=== PATIENT | male | born 1945 | race Caucasian/White ===

== ENCOUNTER 2019-03-30 14:34 | Outpatient (CLI) | payer OTHER, SELFPAY ==
--- NOTE | 2019-03-30 14:40 | CT_ITS ---
WS: [id number] CT CHEST TECHNIQUE: Contrast enhanced CT of the chest with coronal and sagittal reformatted images. CLINICAL INFORMATION: PULMONARY NODULE COMPARISON: CT abdomen pelvis October 06, 2018 DLP: 698.[address] scans at [facility] use at least one of these dose optimization techniques: automat ed exposure control; mA and/or kV adjustment per patient size (includes targeted exams where dose is matched to clinical indication); or iterative reconstruction. FINDINGS: Again seen is a 6 mm noncalcified nodule right lower lobe which appears unchanged. Additional small s ubpleural opacity in the right lower lobe near the diaphragm measuring 4.3 mm appears new from previo us. Mild chronic emphysematous changes. Fibrotic appearing opacity within the right middle lobe likel y fibrosis or subsegmental atelectasis. This was present previously. No acute pulmonary infiltrates. No consolidation or pleural fluid. No mediastinal or hilar lymphadeno david. Normal endobronchial tree. Tortuous thoracic aorta. Moderate eccentric atheromatous disease in the lower thoracic and upper abdominal aorta. Proximal celiac and SMA appear patent. Mild thoracic c urve. Moderate thoracic kyphosis. Hypertrophic changes thoracic spine. Coronary calcification. Adrena l glands are normal. Prominent gallbladder calculus measuring [address]/CT chest w con* [id number] IMPRESSION: 1. Previously described 6 mm noncalcified nodule in the right lower lobe media lly is unchanged from previous. 2. New small subpleural opacity in the right lower lobe near the diaphragm shanell suring 4.3 mm. Recommend 6-12 month follow-up. 3. Fibrosis or subsegmental atelectasis in the right middle lobe was present p reviously. 4. Mild chronic emphysematous changes. No acute pulmonary infiltrates. 5. No mediastinal or hilar lymphadenopathy. 6. Moderate atheromatous disease involving the descending thoracic aorta near the diaphragm and upper abdominal aorta unchanged in appearance. 7. 15 mm calculus in the gallbladder is unchanged.
[2019-03-30 15:19] LABS: Anion Gap 19.3 (5-19); Blood Urea Nitrogen 15 mg/dL (8-23); Calcium 9.2 mg/dL (8.5-10.5); Carbon Dioxide 23 mmol/L (22-29); Chloride 99 mmol/L (98-107); Glucose 116 mg/dL (65-115); Osmolality Calculated 281 mOsm/kg (285-295); Potassium 4.3 mmol/L (3.5-5.1); Sodium 137 mmol/L (136-145)
[2019-03-30] MEDS: iodixanol 320 mg/mL 100mL Btl IV (15:39)
== END 2019-03-30 14:35 | disposition home or self-care (01) ==
LOC: CT 14:37
PROVIDERS: Family Provider Emergency Medicine Emergency Medical Services; PCP Emergency Medicine Emergency Medical Services; Visit Provider Emergency Medicine Emergency Medical Services
DX: R91.1 Solitary pulmonary nodule (principal); K80.20 Calculus of gallbladder without cholecystitis without obstruction
CPT/HCPCS: 36415; 71260; 80048

== ENCOUNTER → 2019-06-30 14:13 | Outpatient (BNVA) | payer OTHER, SELFPAY | PROVIDERS: Family Provider Emergency Medicine Emergency Medical Services; PCP Emergency Medicine Emergency Medical Services; Visit Provider Urology | DX: N40.1 Benign prostatic hyperplasia with lower urinary tract symptoms (principal); R35.1 Nocturia; R35.8 Other polyuria | CPT/HCPCS: 81001 ==

== ENCOUNTER → 2019-12-28 14:39 | Outpatient (BNVA) | payer OTHER, SELFPAY | PROVIDERS: Family Provider Emergency Medicine Emergency Medical Services; PCP Emergency Medicine Emergency Medical Services; Visit Provider Urology | DX: N40.1 Benign prostatic hyperplasia with lower urinary tract symptoms (principal); R35.8 Other polyuria; R35.1 Nocturia | CPT/HCPCS: 81003 ==

== ENCOUNTER → 2020-04-13 12:59 | Outpatient (BNVA) | payer OTHER, SELFPAY | PROVIDERS: Family Provider Emergency Medicine Emergency Medical Services; PCP Emergency Medicine Emergency Medical Services; Visit Provider Surgery | DX: Z01.812 Encounter for preprocedural laboratory examination (principal); D64.9 Anemia, unspecified; Z12.11 Encounter for screening for malignant neoplasm of colon | CPT/HCPCS: 87635 ==

== ENCOUNTER → 2020-05-05 14:09 | Outpatient (BNVA) | payer OTHER, SELFPAY | PROVIDERS: Family Provider Emergency Medicine Emergency Medical Services; PCP Emergency Medicine Emergency Medical Services; Visit Provider Surgery | DX: Z01.812 Encounter for preprocedural laboratory examination (principal); Z20.822 Contact with and (suspected) exposure to COVID-19 | CPT/HCPCS: 87635 ==

== ENCOUNTER → 2020-05-25 14:42 | Outpatient (BNVA) | payer OTHER, SELFPAY | PROVIDERS: Family Provider Emergency Medicine Emergency Medical Services; PCP Emergency Medicine Emergency Medical Services; Referring Provider Emergency Medicine Emergency Medical Services; Visit Provider Orthopaedic Surgery | DX: M47.896 Other spondylosis, lumbar region (principal); M54.5 Low back pain; M54.9 Dorsalgia, unspecified; G89.29 Other chronic pain | CPT/HCPCS: 72110 ==

== ENCOUNTER 2020-06-15 16:47 | Emergency (ER) | payer OTHER, SELFPAY ==
[2020-06-15 17:03] VITALS: BP 107/77; PULSE 144; RESP 18; TEMP 36.8; O2SAT 130; BMI 20.9
--- NOTE | 2020-06-15 17:21 | ECG_ITS ---
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 Measurements Intervals [place] Rate: 125 P: 74 NC: 155 QRS: 53 QRSD: 81 T: 77 QT: 308 QTc: 445 Interpretive Statements SINUS TACHYCARDIA INDETERMINATE AXIS POSSIBLE RIGHT VENTRICULAR CONDUCTION DELAY [RSR (QR) IN V1/V2] MINIMAL ST DEPRESSION [0.025+ mV ST DEPRESSION] No previous ECG available for comparison Electronically Signed On 06-16-2020 7:27:47 CDT by Michelle Beckman M.D. [id number]
--- NOTE | 2020-06-15 17:30 | PC.NURSE ---
Patient brought back directly to a delgado bed from triage and placed under direct supervision due to two MRI techs completing affidavits. Patient denies SI to Gloria RN, THUAN Ba, and Dr. Scherer. Patient refusing any treatment and refuses to change out into paper scrubs. Dr. Scherer consulted Dr. Anderson to come talk with patient to determine if patient needs to be placed on a 96 hour hold. Patient continues to be under direct observation by sitter until Dr. Anderson speaks with patient.
[2020-06-15 18:22] VITALS: BP 110/88; PULSE 126; RESP 20; O2SAT 96
--- NOTE | 2020-06-15 18:23 | PC.NURSE ---
patient refusing all tests at this time, Dr Scherer made aware.
--- NOTE | 2020-06-15 18:47 | ED_ITS ---
HPI - Extremity Problem General: Chief complaint: Extremity Injury, Lower Stated complaint: WEAKNESS/ INCONTINENCE Time Seen by Provider: 06/15/20 17:54 Source: patient and RN notes reviewed Mode of arrival: ambulatory Limitations: no limitations History of Present Illness: HPI Narrative: This is a 74-year-old male who has been having left hip and leg pain for the last 9 weeks. He was here in the hospital to undergo a scheduled MRI but was could not lay flat for that amount of time due to pain. He told the MRI techs that he lives alone, and has a lot of difficulty getting enough to eat or drink because it is too painful to walk to the refrigerator, so he mainly eats things that he can keep in his room. He went for 2 days without drinking water. He has some sort of assistance that is started, and he was able to get some supplies delivered to him, so he does have water and food now. He also was very upset earlier trying to explain why he could not lay down flat, mention to the medical imaging tech said he would rather than have that kind of pain and he would rather commit suicide then stay in that kind of pain.; They directed him here to the ED. He has a history of chronic kidney disease, BPH, and anemia. He regularly attends his medical appointments, and drives himself. Associated symptoms: Deny chest pain or fever(s) Review of Systems General: Reports: 10 or more systems reviewed and unremarkable except in HPI and below Const: Reports: body aches and change in weight; Denies: fever(s) or chills Card: Reports: lightheadedness and dyspnea on exertion; Denies: chest pain or irregular heart rhythm Resp: Denies: productive cough, wheezing or hemoptysis Musc: Reports: extremity pain, limited range of motion, muscle cramps and muscle weakness Neuro: Reports: numbness in extremities, weakness in extremities and difficulty walking; Denies: frequent falls, confusion, difficulty communicating thoughts or seizure- like activity Psych: Denies: hopelessness, auditory hallucinations, tactile hallucinations, suicidal ideation or homicidal ideation Rambo/Lymph: Denies: easy bruising or easy bleeding [facility] PFSH: Medical History BPH NOS w ur obs/LUTS Chronic back pain Hypertension Polyuria Tobacco abuse Surgical History History of tonsillectomy Family History Other Congestive heart failure Social History Smoking and tobacco status: current every day smoker Alcohol intake: current Marital status: Current occupational status: retired History of recent travel: No Physical Exam Const: COMMON NORMALS: patient oriented x3 and alert EXAM LIMITATIONS: no altered mental status and no language barrier GENERAL APPEARANCE: anxious, disheveled and frail appearing; not in distress, not lethargic, not diaphoretic and no odor of alcohol detected NUTRITIONAL APPEARANCE: underweight ORIENTATION/CONSCIOUSNESS: Yes awake, Yes oriented to person, Yes oriented to place and Yes oriented to time; not confused, not patient obtunded and not lethargic HENMT: COMMON NORMALS: normocephalic and atraumatic HEAD & SCALP: normocephalic and atraumatic FACE & SINUS: normal facial exam and face symmetric Eye: COMMON NORMALS: Equal, round and reactive pupils present and EOMs intact bilaterally GENERAL EYE: appearance normal, both eyes and all related structures CONJUNCTIVA: Yes conjunctival abnormal positive bilateral pallor PUPIL: Yes Equal, round and reactive pupils present Neck/C-Spine: GENERAL: Yes normal visual inspection Resp: COMMON NORMALS: normal respiratory effort and No use of accessory muscles EFFORT & INSPECTION: Yes able to speak in complete sentences, No tachypneic and No respiratory distress Cardio: COMMON NORMALS: regular rhythm RATE: tachycardic RHYTHM: regular rhythm Neuro: COMMON NORMALS: patient oriented x3 SENSORIUM/ORIENTATION: Yes alert, Yes oriented to person, Yes oriented to place, Yes oriented to time and No lethargic CRANIAL NERVES: Yes CN normal except as noted SPEECH: speech normal Psych: COMMON NORMALS: mental status grossly normal, Normal thought process present, speech normal, activity/motor behavior normal, denies homicidal ideation and denies suicidal ideation APPEARANCE: Yes disheveled ATTITUDE: Yes calm ACTIVITY/MOTOR BEHAVIOR: Yes appropriate eye contact and No psychomotor agitation SPEECH: Yes normal speech MOOD & AFFECT: Yes anxious THOUGHT PROCESS: Normal thought process present THOUGHT CONTENT: No Suicidality present, No Homicidality present, No delusions, No Hallucination(s) present, No Ideas of reference present (thought content), No Depersonalization present and No rumination(s) ATTENTION/CONCENTRATION: Yes attention grossly intact and Yes concentration grossly intact MEMORY/COGNITION: Yes memory grossly intact and Yes cognition grossly intact INSIGHT: Good insight present (Psych) JUDGEMENT: Good judgement present (Psych) Skin: COMMON NORMALS: no rashes or lesions noted GENERAL SKIN EXAM: no rashes or lesions noted TRAUMA: no lacerations or abrasions Course Vital Signs: Vital signs: Vital Signs Temperature 98.3 F 06/15/20 17:03 Pulse Rate 130 H 06/15/20 19:14 Respiratory Rate 18 06/15/20 19:14 Blood Pressure 106/87 06/15/20 19:14 Pulse Oximetry 97 06/15/20 19:14 MDM - Extremity (Nontraumatic) MDM Narrative: Medical decision making narrative: 74-year-old minutes lumbar radiculopathy, without MRI today when he became frustrated, was unable to lay flat for the study, made some suicidal implications to the radiology techs. He denies any active suicidal or homicidal ideations at this time. He says he has a lot of things he needs to do, does not intend to anytime soon. He understands why what he said earlier had them concerned, however. He is very frustrated about his pain, but he is hopeful that he may be able to undergo steroid shots or other treatments that can help. He does not want to have any testing done right and especially does not want an IV. He is getting anxious because he says it is hard for him to drive at night and he like to get home before dark. He assures me that he did have an elderly assistance program deliver food and water to his house. He is alert and oriented x3 and can make his own decisions. He shows adequate understanding of the situation and the risks involved with leaving AMA. He agrees to follow-up with his PCP and his orthopedist as soon as possible. Medical Records: Attestation: I reviewed the patient's medical records. Lab Data: Attestation: I reviewed the patient's lab results. EKG Data^: EKG 1: Attestation: I personally reviewed and interpreted this EKG as follows: EKG interpretation date: 06/15/20 EKG interpretation time: 18:50 Interpretation: Sinus tachycardia with a ventricular rate of 125, WI 155, QRS 81, QT 382, normal axis, no ST segment elevation. Discharge Plan Discharge Patient Disposition: Left Against Medical Advice Clinical Impression: Sciatic leg pain Condition: Stable Prescriptions: No Action cholecalciferol (vitamin D3) 1,250 mcg (50,000 unit) capsule 1,250 mcg PO DAILY RF: 0 ferrous sulfate 325 mg (65 mg iron) tablet 325 mg PO DAILY RF: 0 vitamin B complex [B Complex-Vitamin B12] Tablet 1 tab PO DAILY RF: 0 timolol 0.25 % drops 1 drop ophthalmic (eye) BID RF: 0 folic acid 400 mcg tablet 0.4 mg PO DAILY RF: 0 tamsulosin 0.4 mg capsule 0.4 mg PO DAILY RF: 0 Discharge Orders: Discharge ED (Routine); Ordered 06/15/20 Ordered By: Angella Reyes Referrals: Kwasi Carrion DO [Primary Care Provider] - Activity Restrictions/Additional Instructions: You have decided to leave the emergency room AGAINST MEDICAL ADVICE. Please call to schedule follow-up appointment with your orthopedic doctor and your primary care doctor soon as possible. Please return immediately to the ER if you develop any worsening symptoms, we will be happy to take care of you again. Coding Level of Care Code ED Branch Service Representative for Jaz Villarreal
--- NOTE | 2020-06-15 19:02 | PC.NURSE ---
report received from THUAN Boogie and care transferred to THUAN Knox
[2020-06-15 19:14] VITALS: BP 106/87; PULSE 130; RESP 18; O2SAT 97
== END 2020-06-15 19:17 | disposition left against medical advice (07) ==
PROVIDERS: Emergency Provider Family Medicine; PCP Emergency Medicine Emergency Medical Services
DX: M54.32 Sciatica, left side (principal); Z53.21 Procedure and treatment not carried out due to patient leaving prior to being seen by health care provider; I10 Essential (primary) hypertension; F17.210 Nicotine dependence, cigarettes, uncomplicated
CPT/HCPCS: 93005; 99284

== ENCOUNTER 2020-06-23 11:07 | Outpatient (CLI) | payer OTHER, SELFPAY ==
--- NOTE | 2020-06-23 11:45 | MR_ITS ---
WS: [id number] MRI LUMBAR SPINE NONCONTRAST HISTORY: DORSALGIA unspecified, CHRONIC PAIN COMPARISON: 10/07/2018 TECHNIQUE: Sagittal and axial multisequence imaging is submitted. Straightening of the normal cervical lordosis and thoracic kyphosis. There is severe cervical, thorac ic and lumbar scoliosis. Mild LEFT convex curvature the lower lumbar spine. Severe degenerative disc disease throughout the lumbar spine. Hypertrophic endplate osteophytes at al l levels. No acute fracture or marrow edema. Conus terminates normally at L1-2 disc level. L1-L2: Mild osteophytic ridging and disc bulging with only mild foraminal narrowing. L2-L3: Diffuse osteophytic ridging and annular disc bulging asymmetrically to the LEFT. Focal LEFT fo raminal disc protrusion causing mild LEFT foraminal stenosis. There is mild central stenosis and suba rticular recess stenosis. Stenosis has progressed since the prior study. L3-L4: Diffuse annular disc bulging and osteophytic ridging. Severe LEFT foraminal stenosis due to di sc and osteophyte disease. Complete effacement of fat in the LEFT foramen. Progression of stenosis si nce the prior study. Mild RIGHT foraminal and central stenosis. L4-L5: Diffuse asymmetric disc bulging with encroachment upon the subarticular recesses bilaterally. Moderate bilateral foraminal stenosis. L5-S1: Mild bilateral foraminal stenosis. No central stenosis. Very small central disc protrusion wit hout displacement of the nerve roots. Ectasia and atherosclerosis of aorta. Mild bilateral renal atrophy. MR/MR lumbar spine wo con* [id number] IMPRESSION: 1. Quality of this examination is limited by motion artifact. 2. Progression of central and foraminal since 2019. 3. Severe LEFT foraminal stenosis at L3-4 due to combination of disc disease a nd facet disease. 4. Mild central, bilateral subarticular recess and LEFT foraminal stenosis at L2-3. 5. Mild central and RIGHT foraminal stenosis at L3-4. 6. Moderate bilateral foraminal stenosis with mild subarticular recess stenosi s at L3-4. 7. Severe thoracolumbar scoliosis.
== END 2020-06-23 11:08 | disposition home or self-care (01) ==
LOC: RADSHAW 11:13
PROVIDERS: PCP Emergency Medicine Emergency Medical Services; Visit Provider Emergency Medicine Emergency Medical Services
DX: M54.5 Low back pain (principal); G89.29 Other chronic pain; M41.85 Other forms of scoliosis, thoracolumbar region; M48.061 Spinal stenosis, lumbar region without neurogenic claudication
CPT/HCPCS: 72148

== ENCOUNTER → 2020-07-27 13:31 | Outpatient (BNVA) | payer OTHER, SELFPAY | PROVIDERS: PCP Emergency Medicine Emergency Medical Services; Referring Provider Orthopaedic Surgery; Visit Provider Anesthesiology Pain Medicine | DX: M48.062 Spinal stenosis, lumbar region with neurogenic claudication (principal); M54.16 Radiculopathy, lumbar region; M47.816 Spondylosis without myelopathy or radiculopathy, lumbar region; F17.210 Nicotine dependence, cigarettes, uncomplicated | CPT/HCPCS: 99204 ==

== ENCOUNTER 2020-10-02 13:28 | Outpatient (CLI) | payer OTHER, SELFPAY ==
--- NOTE | 2020-10-02 13:42 | MR_ITS ---
WS: [id number] MRI OF BOTH HIPS WITHOUT GADOLINIUM ENHANCEMENT. INDICATION: Trauma. Fell off porch. Hip pain. TECHNIQUE: Coronal T1, STIR, axial T1, axial T2, sagittal T1, and sagittal T2 imaging FINDINGS: Moderate degenerative arthritis both hips with joint space narrowing. Normal pubic rami. No rmal bone marrow signal in the proximal femoral shafts. No acute fractures. Normal femoral necks bila terally. Acetabulum is normal in appearance. Hypertrophic changes along the anterior acetabulum bilaterally. N ormal superior and inferior pubic rami. Partially visualized sacrum appears normal. Normal SI joints. Markedly enlarged prostate measuring 4.1 x 4.3 x 5.5 cm AP by transverse by craniocaudal. Indentatio n on the inferior surface of the bladder. Diffuse bladder wall thickening likely due to bladder outle t obstruction. Recommend correlation PSA. MR/MR hips BI wo con [id number] IMPRESSION: 1. Moderate degenerative arthritis both hips with joint space narrowing. No ac nez perce fractures. 2. Normal bone marrow signal in the femoral heads and femoral necks bilaterall y. No visualized fractures. 3. Hypertrophic changes anterior acetabulum bilaterally. 4. Normal pubic rami. 5. Markedly enlarged prostate with evidence of bladder outlet obstruction. Rec ommend correlation PSA. 6. Partially visualized sacrum and sacroiliac joints appear normal.
== END 2020-10-02 13:29 | disposition home or self-care (01) ==
PROVIDERS: PCP Emergency Medicine Emergency Medical Services; Visit Provider Emergency Medicine Emergency Medical Services
DX: R93.89 Abnormal findings on diagnostic imaging of other specified body structures (principal); W19.XXXA Unspecified fall, initial encounter; M16.0 Bilateral primary osteoarthritis of hip; N40.0 Benign prostatic hyperplasia without lower urinary tract symptoms
CPT/HCPCS: 73721

== ENCOUNTER → 2020-12-05 13:51 | Outpatient (BNVA) | payer OTHER, SELFPAY | PROVIDERS: PCP Emergency Medicine Emergency Medical Services; Referring Provider Emergency Medicine Emergency Medical Services; Visit Provider Urology | DX: Z12.5 Encounter for screening for malignant neoplasm of prostate (principal) | CPT/HCPCS: G0103 ==

== ENCOUNTER 2022-10-23 12:19 | Outpatient (RCR) | payer OTHER, SELFPAY | END 2022-11-16 23:59 | disposition home or self-care (01) | LOC: SPT 12:19 | PROVIDERS: PCP Emergency Medicine Emergency Medical Services; Visit Provider Emergency Medicine Emergency Medical Services | DX: H81.13 Benign paroxysmal vertigo, bilateral (principal) | CPT/HCPCS: 95992; 97161 ==

== ENCOUNTER 2022-10-24 11:16 | Outpatient (CLI) | payer OTHER, SELFPAY ==
--- NOTE | 2022-10-24 11:35 | MR_ITS ---
WS: [id number] MRI LUMBAR SPINE NONCONTRAST HISTORY: Chronic low back pain, no injury. COMPARISON: 06/23/2020 TECHNIQUE: Sagittal and axial multisequence imaging is submitted. The same numbering pattern will be utilized on today's MRI as on the prior study. Cervical osteophytes causing significant encroachment upon the cervical canal and foramina at C3-4, C 4-5, C5-6 and C6-7. Mild curvature and increased lumbar lordosis. No acute fracture or marrow edema. Mild chronic reactiv e endplate changes. Severe disc space narrowing at L1-2 with mild progression since the study from 2020. Anterior osteoph ytes have increased at the L1-2 level. Conus terminates normally at L1-2 disc level. L1-L2: 3 mm retrolisthesis of L1. Mild disc bulging. Mild facet and ligamentum flavum hypertrophy. No central stenosis. Mild bilateral subarticular recess and foraminal stenosis. L2-L3: Moderate diffuse annular disc bulging encroaching upon the ventral thecal sac. Moderate ligame ntum flavum and facet arthritis. 2 mm retrolisthesis of L2. Combination of findings resulting in mode rate central, bilateral subarticular recess and moderate RIGHT foraminal stenosis. Mild progression o f disc disease since the prior study. L3-L4: Moderate annular disc bulging with moderate ligamentum flavum and facet joint arthritis. Moder ate central, bilateral subarticular recess and foraminal stenosis. Slightly greater stenosis on the L EFT. The LEFT foraminal stenosis has slightly improved since the prior study. L4-L5: Diffuse annular disc bulging with moderate ligamentum flavum and facet joint arthritis. RIGHT facet joint osteophyte encroaching upon the RIGHT lateral thecal sac. Mild osteophytic ridging. Mild central stenosis with moderate bilateral subarticular recess and foraminal stenosis. L5-S1: Mild annular disc bulging with moderate bilateral facet joint arthritis. Very mild foraminal n arrowing. Ectatic abdominal aorta with atherosclerotic changes. IMPRESSION: 1. Mild progression of degenerative disc disease and osteophytic ridging since the prior study from . Increasing disc base narrowing at L1-2. 2. L3-4: Moderate central, bilateral subarticular recess and foraminal stenosis. Slightly greater shae nosis within the LEFT foramen but mildly improved since 2020. 3. L4-5: Mild central with moderate bilateral subarticular recess and foraminal stenosis. 4. L2-3: Moderate central, bilateral subarticular recess and moderate RIGHT foraminal stenosis. Progr ession of stenosis since 2020. 5. Multilevel facet joint arthritis throughout the lumbar spine.
--- NOTE | 2022-10-24 11:45 | USCV_ITS ---
Yogesh Jordan Age: 77 Gender: M : 1945 Exam Date: 10/24/2022 11:57 Ordering Phys: Kwasi Carrion DO Technologist: WILL Exam Location: [facility] [place] Indication: Vertigo Risk Factors: Previous Vascular Surgery: Right Brachial BP: / Left Brachial BP: / Right Left Velocity (cm/s) Spectral Plaque Velocity (cm/s) Spectral Plaque Syst/Diast Broadening Syst/Diast Broadening 77.90/ 20.20 Prox CCA 87.00 / 22.30 90.40/ 18.80 Mid CCA 83.00 / 20.20 85.20/ 22.00 Distal CCA 104.70/ 30.90 72.40/ 12.80 Prox ICA 121.30/ 20.90 90.40/ 22.10 Mid ICA 103.60/ 24.30 87.10/ 20.90 Distal ICA 75.00 / 22.10 91.50 ECA 113.60 1.00 ICA/CCA 1.16 Antegrade Vertebral Antegrade 49.70/ 16.00 cm/s 61.70/ 17.60 cm/s Bi Subclavian Tri 116.9 88.90 0 CONCLUSIONS Right ICA stenosis <50%. Mild atheromatous plaque right carotid bulb/ICA. Left ICA stenosis <50%. Mild atheromatous plaque left carotid bulb/ICA. Velocities left ICA slightly progressed since 2019 Normal antegrade Doppler flow noted in the right vertebral artery. Normal antegrade Doppler flow noted in the left vertebral artery. Elpidio Henriquez MD (Electronically Signed) Final Date: 24 October 2022 12:39 S
== END 2022-10-24 11:17 | disposition home or self-care (01) ==
PROVIDERS: PCP Emergency Medicine Emergency Medical Services; Visit Provider Emergency Medicine Emergency Medical Services
DX: H81.10 Benign paroxysmal vertigo, unspecified ear (principal); I65.23 Occlusion and stenosis of bilateral carotid arteries; G89.29 Other chronic pain; M51.36 Other intervertebral disc degeneration, lumbar region; M48.061 Spinal stenosis, lumbar region without neurogenic claudication; M47.817 Spondylosis without myelopathy or radiculopathy, lumbosacral region
CPT/HCPCS: 72148; 93880

== ENCOUNTER 2022-10-30 12:47 | Outpatient (CLI) | payer OTHER, SELFPAY ==
--- NOTE | 2022-10-30 12:57 | CT_ITS ---
WS: [id number] CT chest wo con [id number] HISTORY: SMOKER, INCREASED COUGH, DYSPNEA TECHNIQUE: Axial imaging performed through the thorax. Coronal and sagittal reformats are submitted. All CT scans at [facility] use at least one of these dose optimization techniques: automated exposure control; mA and/or kV adjustment per patient size (includes targeted exams where dose is mat ched to clinical indication); or iterative reconstruction. CONTRAST: None DLP: 356.61 mGy.cm COMPARISON: 03/30/2019 Lungs and central airway: Mild pulmonary hyperexpansion. Long-term stability 6 mm nodule at the RIGHT lung base. There is an additional micronodule in the LEFT upper thorax, image 20 of series 5 that is also stable. No pneumonia. No new mass or nodules. Small amount of debris and mucous in the LEFT edgardo n bronchus. Pleura: Normal. No pleural effusion. Heart and pericardium: Normal size heart. Moderate coronary artery calcifications. Mediastinum and yue: No adenopathy. Vessels: Mild atherosclerosis aorta. Normal sized pulmonary artery. Chest wall and lower neck: No soft tissue masses. Upper abdomen: Cholelithiasis. Marked atrophy superior pole LEFT kidney. No adrenal mass. Atrophy upp er pole LEFT kidney has progressed since 2019. Osseous structures: Straightening and curvature thoracic spine. IMPRESSION: 1. No new pulmonary mass or nodule. No pneumonia. 2. No adenopathy. 3. Cholelithiasis. No acute cholecystitis. 4. New atrophy upper pole LEFT kidney since 03/30/2019.
== END 2022-10-30 12:48 | disposition home or self-care (01) ==
LOC: RAD 12:48
PROVIDERS: PCP Emergency Medicine Emergency Medical Services; Visit Provider Emergency Medicine Emergency Medical Services
DX: R06.00 Dyspnea, unspecified (principal); F17.200 Nicotine dependence, unspecified, uncomplicated; R05.9 Cough, unspecified; K80.20 Calculus of gallbladder without cholecystitis without obstruction; N26.1 Atrophy of kidney (terminal)
CPT/HCPCS: 71250

== ENCOUNTER 2022-12-02 13:15 | Outpatient (CLI) | payer OTHER, SELFPAY ==
--- NOTE | 2022-12-02 13:00 | US_ITS ---
WS: [id number] ULTRASOUND RENAL TECHNIQUE: Ultrasound examination of both kidneys. CLINICAL INFORMATION: STAGE 3B CHRONIC KIDNEY DZ COMPARISON: None. FINDINGS: Mild renal cortical atrophy bilaterally LEFT greater than RIGHT. No hydronephrosis. RIGHT: Echogenicity: Normal. Cortical thickness: 1.1 cm; Normal. Hydronephrosis: None. Perinephric fluid: None. Right kidney measures: 8.7 cm x 4.7 cm x 4.9 cm. LEFT: Echogenicity: Normal. Cortical thickness: 1.0 cm; Normal. Hydronephrosis: None. Perinephric fluid: None. Left kidney measures: 8.4 cm x 3.6 cm x 3.8 cm. Normal visualized aorta. Diffuse bladder wall thickening likely due to bladder outlet obstruction. Ma rked prostate enlargement measuring 6.5 x 5.2 cm IMPRESSION: 1. Mild renal cortical atrophy bilaterally LEFT greater than RIGHT. 2. No hydronephrosis. 3. Diffuse bladder wall thickening likely due to bladder outlet obstruction with marked prostate enl argement measuring 6.5 x 5.2 cm. Recommend correlation PSA.
== END 2022-12-02 13:16 | disposition home or self-care (01) ==
LOC: RAD 13:15
PROVIDERS: PCP Emergency Medicine Emergency Medical Services; Visit Provider Registered Nurse
DX: N18.32 Chronic kidney disease, stage 3b (principal); N26.1 Atrophy of kidney (terminal)
CPT/HCPCS: 76770

== ENCOUNTER → 2023-11-05 12:48 | Outpatient (BNVA) | payer OTHER, SELFPAY | PROVIDERS: PCP Emergency Medicine Emergency Medical Services; Referring Provider Family Medicine; Visit Provider Student in an Organized Health Care Education/Training Program | DX: R63.4 Abnormal weight loss (principal) | CPT/HCPCS: 99203 ==

== ENCOUNTER 2023-11-10 12:12 | Outpatient (CLI) | payer OTHER, SELFPAY ==
--- NOTE | 2023-11-10 12:18 | CTR_ITS ---
PROCEDURE INFORMATION: Exam: CT Abdomen And Pelvis Without Contrast Exam date and time: 11/10/2023 1:33 PM Age: 78 years old Clinical indication: Patient HX: Abnormal weight loss. PT states 40lbs in the last 15 years. In the last few weeks maybe a few C/O occasional diarrhea TECHNIQUE: Imaging protocol: Computed tomography of the abdomen and pelvis without contrast. Radiation optimization: All CT scans at this facility use at least one of these dose optimization techniques: automated exposure control; mA and/or kV adjustment per patient size (includes targeted exams where dose is matched to clinical indication); or iterative reconstruction. COMPARISON: CT abdomen pelvis w con* [id number] 10/06/2018 9:27 AM RADIATION DOSE METRICS: Total DLP (mGy-cm): 293.02 FINDINGS: Liver: Normal. No mass. Gallbladder and biliary ducts: 18 mm calcified gallstone. Gallbladder wall is not optimally visualized however is possibly thickened. Pancreas: There are calcifications in the pancreatic head consistent with chronic pancreatitis change. Spleen: Normal. No splenomegaly. Adrenal glands: Normal. No mass. Kidneys and ureters: Nonobstructing bilateral renal calculi. Mild chronic perinephric stranding is similar to the prior CT scan. Stomach and bowel: There is mucosal thickening of the cecum, ascending colon, and proximal transverse colon with mild mesenteric stranding. There are air-fluid levels in the distal colon suggesting mild nonspecific colitis versus other diarrheal illness. Appendix: No evidence of appendicitis. Intraperitoneal space: See Stomach and bowel finding. Vasculature: Multivessel atherosclerotic disease. Infrarenal abdominal aorta is ectatic measuring 2.8 x 2.8 centimetres in AP/transverse dimensions. Lymph nodes: Unremarkable. No enlarged lymph nodes. Urinary bladder: There is a diverticulum off the posterior bladder wall. The bladder is distended. Bladder wall is thickened. Reproductive: Prostate gland is heterogeneous, enlarged, and indents the base of the bladder. Bones/joints: There are degenerative changes in the visualized spine. There are degenerative changes across the hip joints. Soft tissues: Small fat containing left inguinal hernia. There are benign-appearing soft tissue calcifications. CT/CT abdomen pelvis wo con [id number] IMPRESSION: 1. Cholelithiasis. Gallbladder wall is not well seen however is possibly thickened. Consider right upper quadrant ultrasound for further evaluation. 2. There is mucosal thickening of the cecum, ascending colon, and proximal transverse colon with mild mesenteric stranding consistent with nonspecific colitis. Follow-up to exclude neoplasm as clinically warranted. 3. The bladder wall is thickened. This is nonspecific and may represent bladder outlet obstruction, inflammation or infection. Neoplastic process is included in the differential. 4. Prostate gland is heterogeneous, enlarged, and indents the base of the bladder.
[2023-11-10] MEDS: iohexol 350 mg/mL 500 mL Btl (per mL) PO (13:43)
== END 2023-11-10 12:13 | disposition home or self-care (01) ==
LOC: RAD 12:13
PROVIDERS: PCP Emergency Medicine Emergency Medical Services; Visit Provider Family Medicine
DX: K80.20 Calculus of gallbladder without cholecystitis without obstruction (principal); K86.89 Other specified diseases of pancreas; N20.0 Calculus of kidney; R93.3 Abnormal findings on diagnostic imaging of other parts of digestive tract; I77.811 Abdominal aortic ectasia; N32.89 Other specified disorders of bladder; N40.0 Benign prostatic hyperplasia without lower urinary tract symptoms
CPT/HCPCS: 74176

== ENCOUNTER 2024-11-22 12:45 | Outpatient (CLI) | payer OTHER, SELFPAY ==
--- NOTE | 2024-11-22 12:55 | MR_ITS ---
WS: [id number] MRI LUMBAR SPINE NONCONTRAST HISTORY: LOW BACK PAIN COMPARISON: 10/24/2022 TECHNIQUE: Sagittal and axial multisequence imaging is submitted. The same lumbar vertebral body numbering pattern will be used for this examination as in the past. Straightening and reversal of the normal cervical lordosis. Mild increase in the lumbar lordosis. Severe disc space narrowing at L1-2 with large anterior osteophytes. There is bone upon bone involving the anterior L1-2 disc space with similar findings seen on the prior study. No fractures or marrow edema. Conus terminates normally at L1-2 disc level. L1-L2: Mild osteophytic ridging with mild disc bulging, mild ligamentum flavum and facet arthritis. Very slight retrolisthesis of L1. Mild bilateral foraminal stenosis. L2-L3: Mild osteophytic ridging with annular disc bulging. Mild ligamentum flavum and facet arthritis. Mild progression of central and foraminal stenosis. Moderate central, subarticular recess and foraminal stenosis. Mild progression of central foraminal stenosis. Slightly greater stenosis RIGHT foramen. There is disc osteophyte contact on the L2 and L3 nerve roots. L3-L4: Mild annular disc bulging with ligamentum flavum and facet arthritis. Bilateral facet arthritis. Moderate central, subarticular recess and bilateral foraminal stenosis. Small LEFT foraminal osteophyte with mild encroachment upon the exiting LEFT L3 nerve root. L4-L5: Mild annular disc bulging with osteophytic ridging, moderate ligamentum flavum and facet arthritis. Osteophyte encroaches upon the RIGHT lateral thecal sac. Mild central with moderate bilateral subarticular recess and moderate to severe bilateral foraminal stenosis. L5-S1: Mild annular disc bulging with moderate ligamentum flavum disease. There is contact on the S1 nerve roots. Slightly greater contact on the S1 nerve roots with increasing facet arthritis. Mild bilateral subarticular recess and foraminal narrowing. Extensive atherosclerotic disease within the aorta. No aneurysm. Urinary bladder is overly distended. Correlate with bladder outlet obstruction. MR/MR lumbar spine wo con* [id number] IMPRESSION: 1. Mild progression of degenerative disc disease, central foraminal stenosis a s compared to 10/24/2022. 2. No acute fractures or marrow edema. 3. Moderate central, subarticular recess and foraminal stenosis at L2-3. Sligh tly greater stenosis RIGHT foramen. 4. Moderate central, subarticular recess and bilateral foraminal stenosis at L 3-4. Small LEFT foraminal osteophyte contacting the exiting LEFT L3 nerve root. 5. Moderate to severe bilateral foraminal stenosis at L4-5. Mild progression o f foraminal stenosis and facet arthritis since the prior study. Moderate bilate ral subarticular recess and mild central stenosis. 6. Mild disc contact on the S1 nerve roots has progressed since the prior stud y. There is only mild subarticular recess and foraminal stenosis at L5-S1. 7. Urinary bladder appears overly distended. Correlate for possible bladder ou tlet obstruction.
== END 2024-11-22 12:46 | disposition home or self-care (01) ==
LOC: RAD 12:47
PROVIDERS: PCP Family Medicine; Visit Provider Family Medicine
DX: M47.816 Spondylosis without myelopathy or radiculopathy, lumbar region (principal); M47.817 Spondylosis without myelopathy or radiculopathy, lumbosacral region; M40.56 Lordosis, unspecified, lumbar region; M25.78 Osteophyte, vertebrae; M51.369 Other intervertebral disc degeneration, lumbar region without mention of lumbar back pain or lower extremity pain; M51.379 Other intervertebral disc degeneration, lumbosacral region without mention of lumbar back pain or lower extremity pain; M48.061 Spinal stenosis, lumbar region without neurogenic claudication; M48.07 Spinal stenosis, lumbosacral region
CPT/HCPCS: 72148

== ENCOUNTER 2024-12-31 14:02 | Outpatient (CLI) | payer OTHER, SELFPAY ==
--- NOTE | 2024-12-31 14:08 | US_ITS ---
WS: [id number] pelvic limited [id number] HISTORY: CONCERN FOR LEFT INGUINAL HERNIA, male patient. COMPARISON: CT pelvis 11/10/2023. Ultrasound is directed to the LEFT inguinal canal. During Valsalva maneuver there is movement of the soft tissue along the inguinal canal. There is no incarceration of bowel. No fluid collection. This is most consistent with an omental fat hernia. Fat-containing hernia was also noted on a CT from 11/10/2023 in the LEFT inguinal canal. US/US pelvic limited [id number] IMPRESSION: Fat-containing LEFT inguinal hernia.
== END 2024-12-31 14:03 | disposition home or self-care (01) ==
LOC: RAD 14:02
PROVIDERS: PCP Family Medicine; Visit Provider Family Medicine
DX: Z01.89 Encounter for other specified special examinations (principal); K40.90 Unilateral inguinal hernia, without obstruction or gangrene, not specified as recurrent
CPT/HCPCS: 76857

== ENCOUNTER → 2025-01-31 11:22 | Outpatient (BNVA) | payer OTHER, SELFPAY | PROVIDERS: PCP Family Medicine; Visit Provider Student in an Organized Health Care Education/Training Program | DX: K46.9 Unspecified abdominal hernia without obstruction or gangrene (principal); R03.0 Elevated blood-pressure reading, without diagnosis of hypertension | CPT/HCPCS: 99203 ==